=== PATIENT | female | born 1975 | race Caucasian/White ===

== ENCOUNTER 2016-12-06 21:58 | Emergency (ER) | payer OTHER ==
[~2016-12-06] VITALS: Ht 162.6 cm; Wt 68.2 kg
[2016-12-06 21:55] VITALS: BP 135/87; PULSE 89; RESP 20; O2SAT 98
[2016-12-06 22:02] LABS: BASOPHILS % (AUTO) 0.6 % (0-3); EOSINOPHILS % (AUTO) 4.3 % (0-5); MONOCYTES % (AUTO) 8.4 % (4-12); Mean Corpuscular Hemoglobin 20.8 pg (27.0-35.0); Mean Corpuscular Volume 68.5 fL (81-100); NEUTROPHILS % (AUTO) 56.6 % (40-74); Platelet Count 554 bil/L (150-400)
[2016-12-06 22:24] LABS: Magnesium 2.3 mg/dL (1.6-2.6)
--- NOTE | 2016-12-06 22:59 | ED.REPORT ---
HPI- Female Date of Service Dec 06, 2016 ED Provider: Yang Guillermo MD Pt is a 41 year old female with a hx of vaginal bleeding for the last 4 months presenting to the ED via EMS complaining of severe abdominal pain and heavy vaginal bleeding onset yesterday morning. She is scheduled for a hysterectomy by Dr. Mcdaniels in 2 days. She has not had pain this severe before. Denies fever , chills, nausea, vomiting, diarrhea, SOB, wheezing or chest pain. Nursing Notes Stated Complaint: ABDOMINAL PAIN,VAG BLEEDING Chief Complaint: Female Abdominal Pain Nursing Notes Reviewed: Yes Allergies: Coded Allergies: acetaminophen (Verified Allergy, Severe, (FROM VICODIN) RASH, 12/06/16) Scheduled PRN oxyCODONE (oxyCODONE) 5 Mg Tablet 5-10 MG PO Q4H PRN PRN For Pain General Time Seen by MD: 22:52 Chief Complaint Abdominal pain... Hx Obtained From: Patient, EMS Arrived By: Ambulance Sudden in Onset?: No Onset Occurred: Yesterday Symptom Duration: Since onset Quality: Painful Severity: Current: Severe Severity: Maximum: Severe Recent Healthcare: No recent hospitalization, Recent doctor visit Similar Sx Previous: No Past Medical History Past Medical History Notes: PCP Dr. Loaiza Past Medical History History of Crohn's Disease History of depression Shingles Rt leg Anxiety Vaginal bleeding for the last 4 months Past Surgical History Ovarectomy Family History Family hx of uterine fibroids Smoking History Current Every Day Smoker Social History Alcohol Use: Denies alcohol use Drug Use: Denies drug use Ambulatory Status Independent Review of Systems Constitutional: Denies: Chills, Fever GI: Reports: Abdominal pain, Denies: Diarrhea, Nausea, Vomiting Female: Reports: Vaginal bleeding - abnl Complete sys rev & neg: except as marked. Respiratory: Denies: Shortness of breath, Wheezing Cardiovascular: Denies: Chest pain Physical Exam Initial Vital Signs Vital Signs (First) Date Time Temp Pulse Resp B/P Pulse Ox O2 Delivery O2 Flow Rate FiO2 12/06/16 21:55 36.7 89 20 135/87 98 Room Air Initial VS: Reviewed, Vital signs normal General/Constitutional: Well-developed, Well-nourished Head / Eyes: Atraumatic, Normocephalic, PERRL ENT: Mucous membranes moist, Conjunctiva normal, No scleral icterus Neck: Supple, Non-tender, Full range of motion Respiratory: Breath sounds normal, Clear to auscultation, No respiratory distress Cardiovascular: Regular rate & rhythm, Heart sounds normal, Intact distal pulses Extremities: Vascular intact, Neuro intact, No swelling, No tenderness Skin: Warm, Dry, No cyanosis Neurologic: Alert, Oriented, Nonfocal Psychiatric: Mood/affect normal, Behavior normal, Normal thought content Abdomen: Atraumatic, No guarding, No rebound Tenderness/Guarding/Rebound: Positive: Tender suprapubic (Mild) Interpretation & Diagnostics US PELVIS TRANSABDOMINAL: CONCLUSION: Possible submucous leiomyoma measuring about 3 cm posterior body of the uterus. This report was transmitted to the emergency room at 12/07/2016 - 12:41:02 AM PDT. Lab Results Interpretation Result Diagram: 12/07/16 0008 12/06/16 2159 Test 12/06/16 21:59 12/06/16 22:21 12/07/16 00:08 White Blood Count 11.3th/mm3 (3.8-10.1) Red Blood Count 4.03mil/mm3 (3.90-5.20) Mean Corpuscular Volume 68.5fL (81-100) Mean Corpuscular Hemoglobin 20.8pg (27.0-35.0) Mean Corpuscular Hemoglobin Concent 30.4% (32.0-37.0) Red Cell Distribution Width 15.8% (12.3-15.4) Platelet Count 554bil/L (150-400) Neutrophils (%) (Auto) 56.6% (40-74) Lymphocytes (%) (Auto) 29.8% (14-46) Monocytes (%) (Auto) 8.4% (4-12) Eosinophils (%) (Auto) 4.3% (0-5) Basophils (%) (Auto) 0.6% (0-3) Sodium Level 140mEq/L (134-144) Potassium Level 3.9mEq/L (3.5-5.2) Chloride Level 106mEq/L (97-108) Carbon Dioxide Level 22mmol/L (18-29) Blood Urea Nitrogen 18mg/dL (6-24) Creatinine 0.83mg/dL (0.57-1.00) Estimat Glomerular Filtration Rate 107mL/min (>59) Glucose Level 100mg/dL (60-99) Calcium Level 8.6mg/dL (8.5-10.1) Magnesium Level 2.3mg/dL (1.6-2.6) Total Bilirubin 0.2mg/dL (0.0-1.2) Aspartate Amino Transf (AST/SGOT) 18U/L (0-50) Alanine Aminotransferase (ALT/SGPT) 11U/L (0-32) Alkaline Phosphatase 85U/L (25-150) Total Protein 7.1g/dL (6.4-8.4) Albumin 4.2g/dL (3.4-5.0) Lipase 47U/L (13-60) Hold Urine Received (Received) Hemoglobin 8.8g/dL (12.0-15.6) Hematocrit 28.2% (35.0-46.0) Lab Results Interpretation: Microcytic anemia Re-Eval/Medical Decision Med Decision/Clinical Course 41-year-old female with heavy vaginal bleeding over the last several months and tonight it is heavier than usual with considerable cramping. Pelvic ultrasound shows a subserosal fibroid without evidence of central necrosis. She has microcytic anemia without evidence of excessive acute blood loss. She has an preop hysterectomy appointment on Sunday with Dr. Mcdaniels. Iron is recommended. Hydrocodone/APAP 5/325, one or 2 tablets every 4-6 hours as needed for severe pain, #10 prepack dispensed. Re-Evaluation/Progress : Time of Eval: 00:13 Patient Status: Condition improved Re-Evaluation/Progress Note: Discussed lab and ultrasound results and plan for discharge. Pt understands and agrees. Counseled Regarding: Diagnosis, Lab results, Need for follow-up, When/why to return to ED Discharge & Departure Impression: Primary Impression: Fibroid (bleeding) (uterine) Uterine leiomyoma location: submucous Qualified Code: D25.0 - Submucous leiomyoma of uterus Disposition: Home Discharge Condition All VS Reviewed: Yes Condition: Improved Patient Instructions: Uterine Fibroids (ED) Additional Instructions: The bleeding is caused by a fibroid. You are quite anemic. You need to start taking iron. Keep your appointment with Dr. Mcdaniels on Sunday. Call me at [phone] between the hours of 9 PM and 6 AM for the next couple nights if you have any concerns. Referrals: Ilda Loaiza (PCP) Scribe Attestation Portions of this note were transcribed by Mandy Polk. I, Dr. Guillermo personally performed the history, physical exam and medical decision-making; I reviewed and confirmed the accuracy of the information in the transcribed note. Signed by: Quincy Ramirez, 12/06/2016. copies to: Ilda Loaiza Howard L MD Dec 06, 2016 22:59 MANDY POLK Dec 06, 2016 23:03
[2016-12-06] MEDS: fentaNYL-PF 50 mCg/mL 2 mL Inj IVPUSH PRN ×2 (23:03→23:20)
[2016-12-07 00:05] VITALS: BP_SYST 137; BP_SYST 139; BP_DIAS 97; BP_DIAS 98; PULSE 83; PULSE 87
[2016-12-07] MEDS ORDERED: _HYDROcodone/APAP 5-325 mg Tablet PO PRN (00:20)
[2016-12-07] MEDS ORDERED: OXYC5TAB72 PO (01:30)
[2016-12-07] MEDS: fentaNYL-PF 50 mCg/mL 2 mL Inj IVPUSH PRN (01:34)
[2016-12-07 02:41] VITALS: BP 131/92; PULSE 90; RESP 20; O2SAT 100
--- NOTE | 2016-12-07 09:27 | DRSVH ---
PROCEDURE: US PELVIC SONOGRAM INDICATIONS: heavy vaginal bleeding, very painful TECHNIQUE: Real-time scanning was performed of the pelvic organs, with image documentation. Additional endovagi nal scanning was not performed at the patient's request COMPARISON: None. FINDINGS: (orthogonal measurements) Uterus size: 9.64 cm, 6.33 cm, 6.70 cm Endometrium thickness: 5.30 mm Transabdominal scanning: Limited scanning through the kidneys shows no hydronephrosis. No pathologi c free abdominal or pelvic fluid. Endovaginal scanning: Uterus: Uterus is normal in size and appearance. Endometrium is not well-seen. Roughly 3.3 cm subm ucosal fibroid present. Ovaries: Not visualized. IMPRESSION: 1. Limited exam demonstrating a 3.3 cm submucosal fibroid and the endometrial complex is not well see n. Recommend high-resolution endovaginal sonography for further assessment. Alternatively, gynecolo gic protocol MRI could be performed in 2. Ovaries not identified. Dictated by: Sen SANCHEZ Interpreted: Erin Rubin MD on 12/07/2016 at 8:18 Approved by: Erin Rubin M.D. on 12/07/2016 at 9:26
== END 2016-12-07 02:44 | disposition home or self-care (01) ==
LOC: SED 21:58
DX: D25.0 Submucous leiomyoma of uterus (principal); D50.9 Iron deficiency anemia, unspecified; F41.9 Anxiety disorder, unspecified; F17.200 Nicotine dependence, unspecified, uncomplicated; Z87.19 Personal history of other diseases of the digestive system; Z98.51 Tubal ligation status; Z88.6 Allergy status to analgesic agent
CPT/HCPCS: 36415; 76856; 80053; 83690; 83735; 85014; 85018; 85025; 96374; 96376; 99285; J3010